=== PATIENT | female | born 1965 | race Caucasian/White ===

== ENCOUNTER 2016-08-14 14:51 | Emergency (ER) | payer OTHER ==
[~2016-08-14] VITALS: Ht 162.6 cm; Wt 94.8 kg
[~2016-08-14 14:51] MED LIST: ASPIRIN325 MG PO; ERRIN0.35 MG PO; IBUPROFEN200 M1 PO; MOBIC7.5 MG PO
[2016-08-14 16:52] LABS: HEMATOCRIT 46.7 % (36.0-46.0); MCHC 34.3 G/DL (30.0-36.0); MCV 87.6 FL (83-99); MEAN PLAT.VOLUME 10.8 uM^3 (9.5-12.4); PLATELET COUNT 328 K/uL (156-360); RBC DIS.WIDTH-CV 12.6 % (11.8-14.6); RBC DIS.WIDTH-SD 40.3 % (39-53); RED BLOOD COUNT 5.33 M/uL (3.80-5.20); WHITE BLOOD COUNT 9.7 K/uL (4.1-10.2)
[2016-08-14 17:01] LABS: CHLORIDE 105 mEq/L (99-109); POTASSIUM 4.3 mEq/L (3.7-5.4); SODIUM 140 mEq/L (136-147)
[2016-08-14 17:02] LABS: GLUCOSE 104 mg/dL (70-99)
[2016-08-14 17:04] LABS: ANION GAP 9 MEQ/L (2-14)
[2016-08-14 17:06] LABS: GFR ESTIMATE (CALCULATED) > 59 mL/min/
[2016-08-14 17:07] LABS: UREA NITROGEN (BUN) 8 mg/dL (9-23)
[2016-08-14] MEDS ORDERED: VALTREX1000 MG PO (17:50)
[2016-08-14] MEDS ORDERED: PREDNISONE20 MG PO (17:50)
[2016-08-14 18:06] VITALS: BP 173/95
== END 2016-08-14 18:14 | disposition home or self-care (01) ==
LOC: EME 14:51
DX: G51.0 Bell's palsy (principal); Z87.891 Personal history of nicotine dependence
CPT/HCPCS: 70450; 71020; 80048; 85027; 99281; 99284; J7512